=== PATIENT | female | born 1945 | race Asian ===

== ENCOUNTER 2018-02-19 02:32 | Emergency (ER) | payer MEDICARE, OTHER ==
[~2018-02-19] VITALS: Ht 162.6 cm; Wt 55.0 kg
[2018-02-19] MEDS ORDERED: SODIUM CHLORIDE 0.9% 1,000 ML IV ONE (02:55)
[2018-02-19] MEDS ORDERED: KETOROLAC 15MG/ML VIAL IV ONE (03:00)
[2018-02-19 03:29] LABS: BASOPHILS % 0.8 % (0.0-2.0); HEMATOCRIT. 40.5 % (36.0-48.0); HEMOGLOBIN. 13.9 g/dL (12.0-16.0); LYMPHOCYTES % 19.7 % (20.0-50.0); MEAN CORPUSCULAR HEMOGLOBIN 31.4 pg (28.0-32.0); MEAN PLATELET VOLUME 6.9 fl (7.4-10.4); MONOCYTES % 8.3 % (2.0-8.0); NEUTROPHILS % 69.2 % (40.0-76.0); PLATELET 305 x1000/uL (130-400); RED BLOOD CELL COUNT 4.45 mill/uL (4.2-5.4); RED CELL DISTRIBUTION WIDTH 13.5 % (11.6-14.6)
[2018-02-19 03:34] LABS: CHLORIDE 103 mEq/L (98-107)
[2018-02-19 05:28] VITALS: BP 125/75
== END 2018-02-19 05:42 | disposition home or self-care (01) ==
LOC: ER 02:32
DX: S20.211A Contusion of right front wall of thorax, initial encounter (principal); S39.012A Strain of muscle, fascia and tendon of lower back, initial encounter; S29.012A Strain of muscle and tendon of back wall of thorax, initial encounter; I10 Essential (primary) hypertension; E11.9 Type 2 diabetes mellitus without complications; V89.2XXA Person injured in unspecified motor-vehicle accident, traffic, initial encounter; Y93.89 Activity, other specified; Y92.89 Other specified places as the place of occurrence of the external cause; Y99.8 Other external cause status
CPT/HCPCS: 36415; 71045; 72070; 72100; 80048; 84484; 85025; 93005; 96361; 96374; 99285; J1885; J7030